=== PATIENT | female | born 1935 | race Two or more races ===

== ENCOUNTER 2017-08-26 20:18 | Emergency (ER) | payer OTHER ==
[~2017-08-26] VITALS: Ht 157.5 cm; Wt 63.5 kg
[2017-08-26 20:49] LABS: Basophils # (auto) 0.1 uL; Basophils % (auto) 0.6 % (0.0-2.0); Eosinophils # (auto) 0.4 uL; Eosinophils % (auto) 3.1 % (0.0-7.0); Hematocrit 43.2 % (36.0-46.0); Lymphocytes # (auto) 2.3 uL; Mean Corpuscular Hgb Conc. 32.3 g/dL (32.0-36.0); Mean Corpuscular Volume 86.5 fL (80.0-100.0); Mean Platelet Volume 9.6 fL (6.9-10.8); Monocytes # (auto) 0.9 uL; Monocytes % (auto) 6.6 % (0.0-12.0); Neutrophils % (auto) 72.7 % (37.0-80.0); Platelet Count (auto) 262 10^3/uL (140-450); Red Cell Distribution Width 14.1 % (11.8-14.3); White Blood Cell 13.8 10^3/uL (4.4-10.8)
[2017-08-26 21:06] LABS: INR 3.03 (0.9-1.15); Partial Thromboplastin Time 53.7 sec (22.64-33.71); Prothrombin Time 33.4 sec (9.37-12.3)
[2017-08-26 21:12] LABS: Albumin 3.6 g/dL (3.4-5.0); BUN/Creatinine Ratio 11.3; Bilirubin, Total 0.4 mg/dL (0.2-1.0); Calcium 8.3 mg/dL (8.5-10.1); Potassium 3.7 mmol/L (3.5-5.1); Total Protein 7.5 g/dL (6.4-8.2)
[2017-08-27 03:38] VITALS: BP 128/58
== END 2017-08-27 08:20 | disposition home or self-care (01) ==
LOC: ER 20:21
DX: D68.32 Hemorrhagic disorder due to extrinsic circulating anticoagulants (principal); D72.829 Elevated white blood cell count, unspecified; R22.42 Localized swelling, mass and lump, left lower limb; I10 Essential (primary) hypertension; M79.7 Fibromyalgia; E03.9 Hypothyroidism, unspecified; Z86.718 Personal history of other venous thrombosis and embolism; Z88.2 Allergy status to sulfonamides
CPT/HCPCS: 36415; 80053; 85025; 85610; 85730; 93971